=== PATIENT | male | born 1965 | race Caucasian/White ===

== ENCOUNTER 2017-12-16 10:45 | Outpatient (RCR) | payer OTHER ==
[~2017-12-16 10:45] MED LIST: ANDROGEL1% TOP; CALCIUM1 CAP; FLONASEALLERGY NS; LEVOXYL0.025 MG PO; LEVOXYL0.175 MG PO
== END 2018-03-16 | disposition home or self-care (01) ==
LOC: MKS.ESL.PT
DX: M25.562 Pain in left knee (principal); M25.561 Pain in right knee